=== PATIENT | male | born 1985 | race Caucasian/White ===

== ENCOUNTER 2018-03-19 02:17 | Emergency (ER) | payer SELFPAY ==
[~2018-03-19] VITALS: Ht 188 cm; Wt 84.4 kg
[2018-03-19 02:24] VITALS: Ht 188 cm; Wt 84.4 kg
[2018-03-19 03:03] LABS: PLATELET COUNT 292 x10^3mcL (130-400); RED CELL DISTRIBUTION WIDTH 12.3 % (11.5-14.5)
[2018-03-19 03:05] LABS: CALCIUM 8.6 mg/dL (8.5-10.1); CARBON DIOXIDE 24.8 mmol/L (21-32); CHLORIDE SERUM 104 mmol/L (98-107); CREATININE SERUM 1.1 mg/dL (0.7-1.3); GFR1 > 60 mL/min; GLUCOSE SERUM 123 mg/dL (74-106); POTASSIUM SERUM 3.5 mmol/L (3.5-5.1); SODIUM SERUM 138 mmol/L (136-145)
[2018-03-19 03:10] LABS: ALBUMIN 3.8 g/dL (3.4-5.0); ALKALINE PHOSPHATASE 105 U/L (46-116); ALT/SGPT 28 U/L (16-63); AST/SGOT 14 U/L (15-37); BILIRUBIN TOTAL 0.5 mg/dL (0.20-1.00); TOTAL PROTEIN, SERUM 7.3 g/dL (6.4-8.2)
[2018-03-19 03:19] VITALS: BP 130/53
[2018-03-19 03:31] LABS: BAND NEUTROPHIL 2 % (0-10); MONOCYTE 7 % (0-7); SEGMENTED NEUTROPHILS 79 % (37-75)
[2018-03-19 03:34] LABS: rbc morphology (normal/abnorm) NORMAL (NORMAL)
[2018-03-19 03:36] LABS: PLATELET MORPHOLOGY PLATELETS NORMAL
== END 2018-03-19 03:19 | disposition short-term general hospital (02) ==
LOC: ED 02:17
PROVIDERS: Emergency Medicine
DX: I21.9 Acute myocardial infarction, unspecified (principal)
CPT/HCPCS: 83880; J1644; J2270; J2405